=== PATIENT | female | born 1970 | race Caucasian/White ===

== ENCOUNTER 2016-06-19 16:49 | Emergency (ER) | payer BC ==
--- NOTE | 2016-06-19 17:06 | ER Document Report ---
ED General - General Chief Complaint: Shortness Of Breath Stated Complaint: WEAKNESS,JOINT PAIN Time seen by provider: 17:01 Mode of Arrival: Medic Information source: Patient Notes: 45-year-old female woke up this morning and nonproductive cough nausea subjective fever chills body aches particularly in her low back bilaterally. She also reports that 2 weeks of polyuria polydipsia but reports no weight loss. She denies any specific earache, sore throat, chest pain, or abdominal pain. She denies dysuria. She denies hematemesis, mattress, melena, or diarrhea. She also reports sensation of cramping or drawing in both hands which has been present since this morning. She reports taking Synthroid prescribed by provider at [facility] reports no other chronic medical problems Physical Exam: General: Alert, appears uncomfortable HEENT: Normocephalic. Atraumatic. PERRLA. Extraocular movements intact. Oropharynx clear. Mucous membranes moist Neck: Supple. Non-tender. No JVD no nuchal rigidity Respiratory: No respiratory distress. Clear and equal breath sounds bilaterally. Cardiovascular active cardiac and regular PMI not displaced Abdominal: Normal Inspection. Soft, non-tender. No distension. Normal Bowel Sounds. Back: Non-tender. No deformity or step off. No CVA tenderness Extremities: Moves all four extremities. Upper extremities: Normal inspection. Non-tender. Normal color. Normal ROM. Normal temperature. Patient appears to have some carpal spasm bilaterally Lower extremities: Normal inspection. Non-tender. No edema. Normal color. Normal ROM. Normal temperature. Neurological: Speech clear mentation normal Psychological: Normal affect. Normal Mood. Skin: Warm. Dry. Normal color. TRAVEL OUTSIDE OF THE [place] IN LAST 30 DAYS: No - Related Data Allergies/Adverse Reactions: codeine [Codeine] Allergy (Severe, Verified 02/12/14 16:50) Nausea Past Medical History - Social History Smoking Status: Never Smoker Family History: DM, Hypertension - Past Medical History Cardiac Medical History: Denies: Hx Coronary Artery Disease, Hx Heart Attack, Hx Hypertension Pulmonary Medical History: Denies: Hx Asthma, Hx COPD, Hx Pneumonia Neurological Medical History: Denies: Hx Cerebrovascular Accident, Hx Seizures Endocrine Medical History: Reports: Hx Hypothyroidism. Denies: Hx Diabetes Mellitus Type 1, Hx Diabetes Mellitus Type 2 Musculoskeltal Medical History: Denies Hx Arthritis Past Surgical History: Reports: Hx Section - x 1, Hx Hysterectomy - January 2013, Hx Orthopedic Surgery - Immunizations Hx Diphtheria, Pertussis, Tetanus Vaccination: Yes Review of Systems - Review of Systems Constitutional: See HPI EENT: See HPI Cardiovascular: denies: Heart racing Respiratory: See HPI Gastrointestinal: See HPI. denies: Blood in vomit, Black stools, Rectal bleeding Genitourinary: See HPI Female Genitourinary: denies: Musculoskeletal: See HPI Skin: denies: Rash Hematologic/Lymphatic: denies: Swollen glands Neurological/Psychological: See HPI Physical Exam - Vital signs Vitals: Temp Pulse Ox 98 F 98 06/19/16 16:51 06/19/16 16:51 Course - Re-evaluation Re-evalutation: 06/19/16 22:22 Patient's influenza testing was negative but clinically I believe she does have that and that is the etiology for her fever and malaise. Her ABG is consistent with hyperventilation. She was mildly hyperglycemic on arrival this is normalized and her lactic acid route elevation resolved with nothing more than IV fluids and I doubt patient has sepsis. Reevaluation shows her to be resting comfortably and nontoxic in appearance but she reportedly did have an episode of tachypnea during her stay here which was not witnessed by this physician. 06/19/16 22:23 Patient will be discharged with Tamiflu and Zofran for nausea. She reports no primary care physician other than some of the [facility] for hypothyroidism and will provide with primary care physician for follow-up as a glucose up to be rechecked along with hemoglobin A1c in the outpatient setting - Vital Signs Vital signs: Temp Pulse Resp BP Pulse Ox 98 F 22 H 124/76 100 06/19/16 16:51 06/19/16 20:31 06/19/16 20:31 06/19/16 20:31 - Laboratory Result Diagrams: 06/19/16 17:20 06/19/16 21:23 Laboratory results interpreted by me: 06/19/16 06/19/16 06/19/16 17:20 17:20 17:20 Seg Neuts % (Manual) 91 H Lymphocytes % (Manual) 2 L Monocytes % (Manual) 2 L Abs Lymphs (Manual) 0.2 L Carbonic Acid ABG pH ABG pCO2 ABG pO2 ABG HCO3 ABG Total CO2 ABG O2 Saturation Sodium 135.6 L Potassium 3.5 L Chloride Carbon Dioxide 14 L Glucose 208 H POC Glucose Lactic Acid 5.2 H Calcium Urine Protein Urine Glucose (UA) Urine Ketones Urine Ascorbic Acid 06/19/16 06/19/16 06/19/16 17:30 17:52 18:06 Seg Neuts % (Manual) Lymphocytes % (Manual) Monocytes % (Manual) Abs Lymphs (Manual) Carbonic Acid 0.56 L ABG pH 7.52 H ABG pCO2 18.5 L* ABG pO2 114.3 H ABG HCO3 14.7 L ABG Total CO2 15.3 L ABG O2 Saturation 98.6 H Sodium Potassium Chloride Carbon Dioxide Glucose POC Glucose 148 H Lactic Acid Calcium Urine Protein 30 H Urine Glucose (UA) 150 H Urine Ketones 20 H Urine Ascorbic Acid 20 H 06/19/16 21:23 Seg Neuts % (Manual) Lymphocytes % (Manual) Monocytes % (Manual) Abs Lymphs (Manual) Carbonic Acid ABG pH ABG pCO2 ABG pO2 ABG HCO3 ABG Total CO2 ABG O2 Saturation Sodium Potassium 3.3 L Chloride 111 H Carbon Dioxide 18 L Glucose POC Glucose Lactic Acid Calcium 8.1 L Urine Protein Urine Glucose (UA) Urine Ketones Urine Ascorbic Acid - Diagnostic Test Radiology reviewed: Image reviewed, Reports reviewed - EKG Interpretation by Me Additional EKG results interpreted by me: 06/19/16 22:22 EKG review by myself shows sinus tachycardia 113 no acute changes Discharge - Discharge Clinical Impression: Viral syndrome, Hyperglycemia, Hyperventilation Condition: Stable Disposition: HOME, SELF-CARE Instructions: Viral Syndrome ([facility]) Additional Instructions: Hyperventilation You have had an episode of hyperventilation. The symptoms occur because rapid breathing changes the body's chemical balance. Hyperventilation causes dizziness, numbness (particularly of the hands and face), chest pain, muscle spasms, and anxiety. Once an episode begins, it's extremely difficult to control the "need" to breathe rapidly. Hyperventilation may be provoked by drug effects, nausea, or illness, but is often due to anxiety. If no specific cause for the problem was found, treatment for anxiety may be necessary. Once the chemical changes have occurred, the hyperventilation is likely to recur. If you feel the symptoms again, rebreathe your air with a paper bag for several minutes. Sometimes hyperventilation is a symptom of an underlying metabolic or lung problem. If new symptoms develop (such as productive cough, fever, or chest pain), or if you are unable to get relief with rebreathing your exhaled air, call the physician.Hyperglycemia (High Blood Sugar) You have an abnormally high blood sugar. Not all high blood sugar requires long-term treatment. High blood sugar can be due to medications, , or the stress of illness. (These cases are "borderline diabetes.") If the doctor feels your high blood sugar might resolve with time, you may not require treatment now. You will be scheduled for further evaluation. It's very important that you follow through, to see if the blood sugar returns to normal levels. Uncontrolled high blood sugar leads to early heart disease, strokes, nerve damage, eye damage, and kidney damage. Call the physician if there is faintness, excess sleepiness, or very rapid breathing. Prescriptions: Ondansetron [Zofran Odt 4 mg Tablet] 1 tab PO Q6H PRN #15 tab.rapdis PRN Reason: For Nausea/Vomiting Oseltamivir Phosphate [Tamiflu 75 mg Capsule] 75 mg PO BID #9 capsule Referrals: TOAN RICH MD [ACTIVE STAFF] - Follow up in 1 week
[2016-06-19] MEDS: NORMAL SALINE 1000 ML 1,000 ML IV PRN ×2 (17:35→20:29)
[2016-06-19 17:47] LABS: PROTHROMBIN TIME 13.3 SEC (11.4-15.4)
[2016-06-19 17:49] LABS: HEMATOCRIT 39.6 % (36.0-47.0); HEMOGLOBIN 13.5 g/dL (12.0-15.5); HGB HCT DIFFERENCE 0.9; MEAN CORPUSCULAR HEMOGLOBIN 29.4 pg (27.0-33.4); MEAN CORPUSCULAR HGB CONC 34.2 g/dL (32.0-36.0); MEAN CORPUSCULAR VOLUME 86 fl (80-97); RED BLOOD COUNT 4.61 10^6/uL (3.72-5.28); RED CELL DISTRIBUTION WIDTH 13.3 % (11.5-14.0); WHITE BLOOD COUNT 7.7 10^3/uL (4.0-10.5)
[2016-06-19 17:54] LABS: ARTERIAL BLOOD BASE EXCESS -5.6 mmol/L; ARTERIAL BLOOD O2 SATURATION 98.6 % (94-98)
[2016-06-19 17:56] LABS: ALANINE AMINOTRANSFERASE 18 U/L (9-52); ALBUMIN 4.2 g/dL (3.5-5.0); ALKALINE PHOSPHATASE 62 U/L (38-126); ANION GAP 16 (5-19); ASPARTATE AMINO TRANSFERASE 23 U/L (14-36); BILIRUBIN,TOTAL 0.6 mg/dL (0.2-1.3); BLOOD UREA NITROGEN 9 mg/dL (7-20); CALCIUM 9.4 mg/dL (8.4-10.2); CARBON DIOXIDE 14 mmol/L (22-30); CHLORIDE 106 mmol/L (98-107); CREATININE RESULT 0.69 mg/dL (0.52-1.25); GLUCOSE 208 mg/dL (75-110); POTASSIUM 3.5 mmol/L (3.6-5.0); SODIUM 135.6 mmol/L (137-145); TOTAL PROTEIN 7.1 g/dL (6.3-8.2)
[2016-06-19 18:13] LABS: BAND NEUTROPHILS % (MANUAL) 4 % (3-5); BASOPHILS % (MANUAL) 0 % (0-2); EOSINOPHILS % (MANUAL) 0 % (0-6); LYMPHOCYTES % (MANUAL) 2 % (13-45); TOTAL CELLS COUNTED 100
[2016-06-19 18:14] LABS: TOXIC GRANULATION 2+
[2016-06-19 18:43] LABS: APPEARANCE,URINE SLIGHTLY-CLOUDY; BILIRUBIN,URINE NEGATIVE (NEGATIVE); GLUCOSE, URINE 150 mg/dL (NEGATIVE); KETONES,URINE 20 mg/dL (NEGATIVE); LEUKOCYTE ESTERASE,URINE NEGATIVE (NEGATIVE); NITRITE,URINE NEGATIVE (NEGATIVE); PROTEIN,URINE 30 mg/dL (NEGATIVE); URINE SPECIFIC GRAVITY 1.039; UROBILINOGEN,URINE NEGATIVE mg/dL (<2.0)
[2016-06-19 21:55] LABS: ANION GAP 10 (5-19); BLOOD UREA NITROGEN 8 mg/dL (7-20); CALCIUM 8.1 mg/dL (8.4-10.2); CARBON DIOXIDE 18 mmol/L (22-30); CHLORIDE 111 mmol/L (98-107); GLUCOSE 110 mg/dL (75-110); POTASSIUM 3.3 mmol/L (3.6-5.0); SODIUM 138.6 mmol/L (137-145)
[2016-06-19] MEDS ORDERED: ONDANSETRON 4 MG TAB.RAPDIS PO ONE (22:21)
[2016-06-19] MEDS ORDERED: OSELTAMIVIR PHOSPHATE 75 MG CAPSULE PO ONE (22:21)
[2016-06-19 22:49] VITALS: BP 125/72
--- NOTE | 2016-06-20 11:14 | EKG REPORT ---
SEVERITY:- BORDERLINE ECG - SINUS TACHYCARDIA BORDERLINE INFERIOR Q WAVES : Confirmed by: Ernesto Matson 20-Jun-2016 11:13:13
== END 2016-06-19 22:51 | disposition home or self-care (01) ==
LOC: ER 16:49
DX: R06.4 Hyperventilation (principal); B34.9 Viral infection, unspecified; R05 Cough; R73.9 Hyperglycemia, unspecified; R11.0 Nausea; M54.5 Low back pain; R50.9 Fever, unspecified; R53.81 Other malaise; R35.8 Other polyuria; R63.1 Polydipsia; E03.9 Hypothyroidism, unspecified; R00.0 Tachycardia, unspecified; R29.91 Unspecified symptoms and signs involving the musculoskeletal system; Z79.899 Other long term (current) drug therapy; Z88.5 Allergy status to narcotic agent
CPT/HCPCS: 93005; 99285; 96360; 96361; 36415; 87040; 87070; 87086; 87880; 82962; 82803; 85025; 85610; 80048; 80053; 81001; 83605; 87804; 71020; 93010; J7030

== ENCOUNTER → 2016-09-25 | Outpatient (CLI) | payer BC ==
--- NOTE | 2016-09-25 17:05 | RADIOLOGY REPORT (SQ) ---
EXAM DESCRIPTION: MRI LT LOWER EXTREMITY COMBO COMPLETED DATE/TIME: 09/25/2016 4:15 pm REASON FOR STUDY: LOCALIZED SWELLING, MASS AND LUMP, LEFT LOWER LIMB R22.42 LOCALIZED SWELLING, MAS S AND LUMP, LEFT LOWER LIMB COMPARISON: None. TECHNIQUE: Proton density, T1 and gradient noncontrast multiplanar imaging of the left foot. Patient was injected with 15 mL of MultiHance gadolinium, axial coronal and sagittal fat-sat T1 image s were also obtained. LIMITATIONS: None. FINDINGS: Patient has focal plantar foot pain. Area of pain was marked with a vitamin-E capsule. D eep to the vitamin-E capsule, focal plantar fasciitis is present along the medial plantar fascia bund le, 5 cm from the calcaneus. There is focal thickening of the plantar fascia and marked contrast enh ancement. This involves an area of the plantar fascia measuring about 1.6 cm longitudinal by a 1.8 c m transverse, and is best shown on axial image 19, coronal image 10, and sagittal image 8. MARROW SIGNAL: Normal JOINT EFFUSION: No tibiotalar joint or subtalar joint effusions. Intertarsal joints are normal. SINUS TARSI: Unremarkable PLANTAR FASCIA: As above TARSAL, TARSOMETATARSAL AND TOE ARTICULATIONS: Unremarkable SOFT TISSUES: Unremarkable OTHER: No other significant finding IMPRESSION: The area of patient's plantar pain correlates with focal plantar fasciitis TECHNICAL DOCUMENTATION: JOB ID: [id number] [employer]- All Rights Reserved
== END ==
LOC: RAD 15:09
PROVIDERS: ATTEND Podiatrist Foot & Ankle Surgery
DX: R22.42 Localized swelling, mass and lump, left lower limb (principal)
CPT/HCPCS: 73720; A9577

== ENCOUNTER 2016-10-25 08:39 | Day surgery (SDC) | payer BC ==
[2016-10-24 13:58] LABS: ABSOLUTE EOSINOPHILS # (AUTO) 0.1 10^3/uL (0.0-0.6); ABSOLUTE MONOCYTES (AUTO) 0.6 10^3/uL (0.1-1.4); BASOPHILS % (AUTO) 0.4 % (0-2); EOSINOPHILS % (AUTO) 0.5 % (0-6); HEMATOCRIT 47.9 % (36.0-47.0); HEMOGLOBIN 15.9 g/dL (12.0-15.5); HGB HCT DIFFERENCE -0.2; LYMPHOCYTES % (AUTO) 27.8 % (13-45); MEAN CORPUSCULAR HEMOGLOBIN 28.5 pg (27.0-33.4); MEAN CORPUSCULAR HGB CONC 33.1 g/dL (32.0-36.0); MEAN CORPUSCULAR VOLUME 86 fl (80-97); MONOCYTES % (AUTO) 5.4 % (3-13); RED BLOOD COUNT 5.57 10^6/uL (3.72-5.28); RED CELL DISTRIBUTION WIDTH 13.9 % (11.5-14.0); SEGMENTED NEUTROPHILS % (AUTO) 65.9 % (42-78); WHITE BLOOD COUNT 10.7 10^3/uL (4.0-10.5)
[2016-10-24 14:02] LABS: APPEARANCE,URINE SLIGHTLY-CLOUDY; BILIRUBIN,URINE NEGATIVE (NEGATIVE); GLUCOSE, URINE NEGATIVE (NEGATIVE); KETONES,URINE NEGATIVE (NEGATIVE); LEUKOCYTE ESTERASE,URINE NEGATIVE (NEGATIVE); NITRITE,URINE NEGATIVE (NEGATIVE); PROTEIN,URINE NEGATIVE (NEGATIVE); URINE SPECIFIC GRAVITY 1.016; UROBILINOGEN,URINE NEGATIVE mg/dL (<2.0)
[~2016-10-25 08:39] MED LIST: CEFAZOLIN 1 GM/D5W RTU 1 GM/50 ML RTUPB IV PRN; RINGERS SOLUTION,LACTATED 1,000 ML IV PRN
[2016-10-25] MEDS ORDERED: LIDOCAINE 2% INJ (20 MG/ML) 20 ML MDV ONE (08:58)
[2016-10-25] MEDS ORDERED: BUPIVACAINE HCL 0.5 % INJ/PF 30 ML SDV ONE (08:59)
[2016-10-25] MEDS ORDERED: MIDAZOLAM 2 MG/2 ML INJ ONE (09:28)
[2016-10-25] MEDS ORDERED: LIDOCAINE 2% INJ-PF (100 MG/5 ML) SYRINGE ONE (09:29)
[2016-10-25] MEDS ORDERED: FENTANYL CITRATE INJ/PF 100 MCG/2 ML AMPUL ONE (09:29)
[2016-10-25] MEDS ORDERED: PROPOFOL INJ 200 MG/20 ML VIAL IV ONE (11:16)
[2016-10-25] MEDS ORDERED: ONDANSETRON HCL INJ/PF 4 MG/2 ML SDV ONE (11:44)
--- NOTE | 2016-11-20 13:49 | [facility] OPERATIVE REPORT E ---
[facility] Operative Report NAME: ANGELA REEDER AGE: 46Y DATE OF SURGERY: 10/25/2016 ROOM: PREOPERATIVE DIAGNOSIS: Plantar fibromatoma, left foot. POSTOPERATIVE DIAGNOSIS: Plantar fibromatoma, left foot. PROCEDURE PERFORMED: Excision of plantar fibromatoma, left foot. SURGEON: KELSEY LEAL D.P.M. INTRAOPERATIVE FINDINGS: Indicated very large fibrous tumor located and occupying extensively the medial band of the plantar fascia. The mass was not penetrating deeper than the plantar fascia and had no invasive characteristics at all. Intraoperative findings were confirmed clinically and via MRI. COMPLICATIONS: None. SPECIMEN REMOVED: Fibrous tumor from the left foot. PROCEDURE: With the patient laying in a dorsal recumbent position, left foot and leg were prepped and draped in the usual standard sterile orthopedic manner after the local anesthesia was administered, which was a posterior tibial block at the level of the left ankle. The type of anesthesia utilized was a 50/50 mixture of 2% Xylocaine and 0.5% Marcaine. After the anesthetic effect was accomplished the left leg was elevated for approximately 2 minutes of time and the left ankle pneumatic tourniquet was inflated up to 250 mmHg after the blood was exsanguinated from the left foot. At this point the left leg was brought to the level of the table and attention was directed to the plantar aspect of the left foot. The margins of the plantar mass were marked on the skin and a curvilinear incision was placed right through the apical portion of the mass. The incision was longitudinal and curved to prevent scarring and was parallel to the long axis of the plantar surface of the left foot. The initial incision was deepened. All superficial and deep subcutaneous tissues were dissected via blunt and sharp dissection. All bleeders were ligated at this point. The dissection continued until the tumor was brought into the surgical field. Again, it was located over the medial band of the plantar fascia. Very carefully the tumor was excised from its attachment to the plantar fascia. The plantar fascia was evaluated and precautions were taken to not leave any remnants of the tumor behind since it has very high characteristics of recurrence. The final evaluation of the plantar fascia indicated a total clearing from any pathological tissue. The medial band of the plantar fascia was also left intact. Due to the successful excision of the plantar mass, the area was irrigated with copious amounts of sterile saline solution. The ankle tourniquet was deflated. Circulation to the left foot returned to normal immediately as the normal digital color and temperature became apparent. At this point the subcutaneous tissues were closed with 3-0 Vicryl. The skin edges were repositioned and closed with 4-0 nylon using continuous interlocked stitch. A Betadine compression dressing was applied around the left foot, followed with the August bandage and a surgical shoe. This patient tolerated the procedure well, left the operating room with stable vital signs and in good condition. The patient was taken to the recovery room, alert, conscious and oriented, and there are no permanent disabilities anticipated at this time. The immediate postoperative recovery was also very uneventful. The patient was sent home with instructions for postoperative care at home and instructions how to manage the pain medicine and the antibiotics. The patient was placed on a regular diet. Point of contact information was also given to the patient. Again, there are no permanent disabilities anticipated at this time. DICTATING PHYSICIAN: KELSEY LEAL D.P.M. [id number] PHY#: [id number] ID: [id number] JOB#: [id number] ACCT: [id number] cc:KELSEY LEAL D.P.M. >
== END 2016-10-25 12:00 | disposition home or self-care (01) ==
LOC: SC 08:39
PROVIDERS: ATTEND Podiatrist Foot & Ankle Surgery
PROC: 0JBR0ZZ Excision of Left Foot Subcutaneous Tissue and Fascia, Open Approach (ICD-10-PCS; principal; 2016-10-25 09:45)
DX: D48.1 Neoplasm of uncertain behavior of connective and other soft tissue (principal); Z79.899 Other long term (current) drug therapy; E07.9 Disorder of thyroid, unspecified; M72.2 Plantar fascial fibromatosis
CPT/HCPCS: 36415; 85025; 81001; 88304 ×2; 28060; J2250; J3490; J0690; J3010; J2001; J2405; J2704; 1464

== ENCOUNTER 2018-01-18 17:03 | Emergency (ER) | payer BC ==
[2018-01-18] MEDS ORDERED: IBUPROFEN 600 MG TABLET PO ONE (18:12)
[2018-01-18] MEDS ORDERED: METHOCARBAMOL 500 MG TABLET PO ONE (18:12)
[2018-01-18 18:28] LABS: APPEARANCE,URINE CLEAR; BILIRUBIN,URINE NEGATIVE (NEGATIVE); COLOR,URINE YELLOW; GLUCOSE, URINE NEGATIVE (NEGATIVE); KETONES,URINE NEGATIVE (NEGATIVE); LEUKOCYTE ESTERASE,URINE NEGATIVE (NEGATIVE); NITRITE,URINE NEGATIVE (NEGATIVE); PROTEIN,URINE NEGATIVE (NEGATIVE); URINE SPECIFIC GRAVITY 1.016
--- NOTE | 2018-01-18 18:42 | RADIOLOGY REPORT (SQ) ---
EXAM DESCRIPTION: CT LTD RENAL STONE PROTOCOL ON COMPLETED DATE/TIME: 01/18/2018 6:18 pm REASON FOR STUDY: right flank and low back pain COMPARISON: 08/16/2013 TECHNIQUE: CT scan of the abdomen and pelvis performed without intravenous or oral contrast. Images reviewed with lung, soft tissue, and bone windows. Reconstructed coronal and sagittal MPR images revi ewed. All images stored on PACS. All CT scanners at this facility use dose modulation, iterative reconstruction, and/or weight based d osing when appropriate to reduce radiation dose to as low as reasonably achievable (ALARA). [facility]: Dose Right [facility]: CareDose [facility]: Dose Right [facility]: Teradose 4D [facility]: Smart [employer] RADIATION DOSE: CT Rad equipment meets quality standard of care and radiation dose reduction techniq ues were employed. CTDIvol: 8.8 mGy. DLP: 469 mGy-cm.mGy. LIMITATIONS: None. FINDINGS: LOWER CHEST: No significant findings. No nodules or infiltrates. NON-CONTRASTED LIVER, SPLEEN, ADRENALS: Evaluation limited by lack of IV contrast. No identified sign ificant masses. PANCREAS: No masses. No peripancreatic inflammatory changes. GALLBLADDER: No identified stones by CT criteria. No inflammatory changes to suggest cholecystitis. RIGHT KIDNEY AND URETER: No suspicious masses. Assessment limited by lack of IV contrast. No signif icant calcifications. No hydronephrosis or hydroureter. LEFT KIDNEY AND URETER: No suspicious masses. Assessment limited by lack of IV contrast. No signifi cant calcifications. No hydronephrosis or hydroureter. AORTA AND RETROPERITONEUM: No aneurysm. No retroperitoneal masses or adenopathy. BOWEL AND PERITONEAL CAVITY: No obvious masses or inflammatory changes. No free fluid. APPENDIX: Normal. PELVIS, BLADDER, AND ABDOMINAL WALL:No abnormal masses. No free fluid. Bladder normal. BONES: No significant findings. OTHER: No other significant finding. IMPRESSION: NO SIGNIFICANT OR ACUTE PROCESS IN THE ABDOMEN OR PELVIS. COMMENT: Quality ID # [id number]: Final reports with documentation of one or more dose reduction techniques (e.g., Automated exposure control, adjustment of the mA and/or kV according to patient size, use of iterative reconstruction technique) TECHNICAL DOCUMENTATION: JOB ID: [id number] [employer]- All Rights Reserved Reading location - IP/workstation name: [email or web address]
--- NOTE | 2018-01-18 19:03 | ER Document Report ---
ED Neck/Back Problem - General Chief Complaint: Low Back Pain Stated Complaint: BACK PAIN Time Seen by Provider: 01/18/18 17:39 Mode of Arrival: Ambulatory Information source: Patient Notes: 37-year-old female presented to ED for complaint of low back pain. She states she has had this pain for a while but today she bent over and felt a pop and had a lot more pain than normal. She states she has had the back pain for at least 2 months. She is alert and oriented respirations regular and able speaking in full sentences walking with a even steady gait. TRAVEL OUTSIDE OF THE [place] IN LAST 30 DAYS: No - HPI Patient complains to provider of: Pain, Lower back - Pain to the left lower back and flank. Onset: Other - She has had pain off and on for about 2 months but it got much worse last couple days and today she felt a pop when she bent over so she came to the emergency room Onset: Gradual Timing: Still present Quality of pain: Sharp Severity: Moderate Pain Level: 4 Context: Bending Recent injury: No Associated symptoms: Like prior neck/back pain - States is worse no vertebral tenderness, Lower back pain - Left lower back and flank pain. denies: Incontinence, Motor loss, Numbness/tingling, Radiation to arm, Radiation to chest, Radiation to leg, Sensory loss, Sweaty, Unable to urinate, Upper back pain Exacerbated by: Movement of trunk, Sitting position Relieved by: Nothing Similar symptoms previously: Yes Recently seen / treated by doctor: No - Related Data Allergies/Adverse Reactions: No Known Allergies Allergy (Unverified 10/24/16 12:17) Past Medical History - General Information source: Patient - Social History Smoking Status: Never Smoker Cigarette use (# per day): No Chew tobacco use (# tins/day): No Smoking Education Provided: No Frequency of alcohol use: None Drug Abuse: None Occupation: [employer] Lives with: Family Family History: DM, Hypertension Patient has suicidal ideation: No Patient has homicidal ideation: No - Past Medical History Cardiac Medical History: Reports: Hx Hypertension Pulmonary Medical History: Reports: None EENT Medical History: Reports: None Neurological Medical History: Reports: None Endocrine Medical History: Reports: Hx Hypothyroidism Renal/ Medical History: Reports: None Malignancy Medical History: Reports: None GI Medical History: Reports: None Musculoskeletal Medical History: Reports Hx Musculoskeletal Deformity, Reports Hx Musculoskeletal Trauma Skin Medical History: Reports None Psychiatric Medical History: Reports: None Traumatic Medical History: Reports: Hx Fractures - Fractured knees Infectious Medical History: Reports: None Past Surgical History: Reports: Hx Section - x 1, Hx Hysterectomy, Hx Orthopedic Surgery - Meniscus and foot surgery - Immunizations Hx Diphtheria, Pertussis, Tetanus Vaccination: Yes Review of Systems - Review of Systems Constitutional: No symptoms reported EENT: No symptoms reported Cardiovascular: No symptoms reported Respiratory: No symptoms reported Gastrointestinal: No symptoms reported Genitourinary: Flank pain Female Genitourinary: No symptoms reported Musculoskeletal: Back pain, Muscle pain, Muscle stiffness Skin: No symptoms reported Hematologic/Lymphatic: No symptoms reported Neurological/Psychological: No symptoms reported -: Yes All other systems reviewed and negative Physical Exam - Vital signs Vitals: Temp Pulse Resp BP Pulse Ox 98.2 F 75 14 153/82 H 99 01/18/18 17:22 01/18/18 17:22 01/18/18 17:22 01/18/18 17:22 01/18/18 17:22 Interpretation: Normal - General General appearance: Appears well, Alert - HEENT Head: Normocephalic, Atraumatic Eyes: Normal Pupils: PERRL - Respiratory Respiratory status: No respiratory distress Chest status: Nontender Breath sounds: Normal Chest palpation: Normal - Cardiovascular Rhythm: Regular Heart sounds: Normal auscultation Murmur: No - Abdominal Inspection: Normal Distension: No distension Bowel sounds: Normal Tenderness: Nontender Organomegaly: No organomegaly - Back Back: Normal, Tender. No: Deformity/step-off, CVA tenderness, Vertebra tenderness, Scars, Scoliosis, Wounds Notes: No signs or symptoms of cauda equina, no saddle anesthesia, no loss control of bowel bladder, no loss of sensation or control of lower extremities. - Extremities General upper extremity: Normal inspection, Nontender, Normal color, Normal ROM , Normal temperature General lower extremity: Normal inspection, Nontender, Normal color, Normal ROM , Normal temperature, Normal weight bearing. No: Israel's sign - Neurological Neuro grossly intact: Yes Cognition: Normal Orientation: AAOx4 Cherry Coma Scale Eye Opening: Spontaneous Cherry Coma Scale Verbal: Oriented Cherry Coma Scale Motor: Obeys Commands [place] Coma Scale Total: 15 Speech: Normal Motor strength normal: LUE, RUE, LLE, RLE Sensory: Normal - Psychological Associated symptoms: Normal affect, Normal mood - Skin Skin Temperature: Warm Skin Moisture: Dry Skin Color: Normal Course - Re-evaluation Re-evalutation: 01/18/18 21:06 CT and urine discussed with patient and written results given to patient to follow-up with her primary doctor. Patient was treated with muscle relaxers. Patient was instructed to follow-up with her primary doctor. - Vital Signs Vital signs: Temp Pulse Resp BP Pulse Ox 98.2 F 73 15 138/87 H 100 01/18/18 19:03 01/18/18 19:03 01/18/18 19:03 01/18/18 19:03 01/18/18 19:03 - Laboratory Laboratory results interpreted by me: 01/18/18 18:13 Urine Urobilinogen 2.0 H - Diagnostic Test Radiology reviewed: Image reviewed, Reports reviewed Discharge - Discharge Clinical Impression: Left flank pain Low back pain Qualifiers: Chronicity: chronic Back pain laterality: bilateral Sciatica presence: without sciatica Qualified Code(s): M54.5 - Low back pain Condition: Stable Disposition: HOME, SELF-CARE Additional Instructions: Flank Pain We weren't able to prove an exact cause for your flank pain. Pain in the flank can be caused by a muscle strain or spasm. Sometimes a kidney stone causes pain, but can't be found on our tests. Infection in the kidney should be evident on a urine test. Early shingles can occasionally cause flank pain, without the rash that proves the diagnosis. On rare occasions, disease of the pancreas, aorta, spleen, or colon can create pain in the flank. At this time, there's no evidence of a dangerous condition, and it seems safe for you to be at home. If the pain goes away and does not come back, no further testing will be needed. If pain persists, or becomes more severe, we may need to repeat some tests or order additional new testing. Blood in the urine, urgency to urinate frequently, and pain that radiates to the groin can indicate a kidney stone. Fever may mean that the pain is due to infection, either of the kidney or the colon (diverticulitis). If your pain is early shingles, you should develop an eruption of blisters in the painful area within a few days. Call the doctor or return if you have pain that is spreading or becoming more severe, pain that does not resolve with time, fever, or any other new symptoms. LOW BACK PAIN: Three out of every four people will have an episode of disabling back pain during their lifetime. Most commonly the pain is due to straining of the muscles and ligaments in the low back. Usual treatment includes: (1) Rest on a firm surface. Avoid lying on your stomach. (2) Ice pack the painful area. After a few days, gentle heat may be used intermittently to relax the area, or ice packs can be continued. (3) Medication may be needed -- muscle relaxers and antiinflammatory medicines are commonly used. (4) As the back improves, exercises are prescribed to strengthen the back and abdominal muscles. Your doctor will advise you on the proper care for your back at each stage in your recovery. You may be better in a few days -- or healing may take several weeks. If new symptoms of a "herniated disc" (radiation of pain, numbness, or tingling down the back of the leg or weakness in the leg) occur, you should be re-examined. Further testing may be necessary. Ibuprofen Ibuprofen is an excellent, safe drug for pain control. In addition, it has potent antiinflammatory effects which are beneficial, especially in the treatment of injuries, arthritis, or tendonitis. It's best to take ibuprofen with food. Persons with ulcer disease or allergy to aspirin should notify their physician of this before taking ibuprofen. Take the medication exactly as prescribed. Don't take additional doses unless instructed to do so by your doctor. If you develop wheezing, shortness of breath, hives, faintness, stomach pain, vomiting, or dark black stools, return for re-evaluation at once. MUSCLE RELAXERS: Muscle relaxing medications are usually prescribed for acute muscle spasm or injury to the neck and back. They are often combined with antiinflammatory pain medication for increased relief. You may stop the muscle relaxer when the pain and stiffness have improved. Start the medication again if spasms recur. Muscle relaxers may cause drowsiness, especially with the first dose. Do not operate machinery or drive while under the effects of the medication. Most muscle relaxers last up to 24 hours. Do not combine the medication with alcohol. ICE PACKS: Apply ice packs frequently against the painful area. Many different schedules are recommended, such as "20 minutes on, 20 minutes off" or "one hour ice, two hours rest." If you need to work, you may need to go longer between ice treatments. You should plan to have the area ice packed AT LEAST one fourth of the time. The ice should be applied over the wrap, tape, or splint, or over a layer of cloth -- not directly against the skin. Some ice bags have a built-in cloth and can be put directly on the skin. WARM PACKS: After approximately two days, apply gentle heat (such as a heating pad or hot water bottle) for about 20 to 30 minutes about every two hours -- at least four times daily. Warmth and elevation will help you make a more rapid recovery , and will ease the pain considerably. Do not use HOT heat, and never apply heat for longer than 30 minutes. The continuous heat can invisibly damage skin and muscles -- even when no burn is seen on the surface. Damaged muscles can make you MORE sore. Stretching Exercises for the Back The physician has recommended that you begin stretching exercises for your back. These are often used even while the back is painful. However, you should notify the physician if the activities seem to increase your pain. PELVIC TILT: Lie flat on your back with knees bent. Tighten your stomach and buttock muscles so it flattens your lower back against the floor. Hold 10 seconds. Repeat 10 times, twice daily. KNEE RAISE: Lying on the back with knees bent, raise one knee to your chest, then the other. Hold both knees against the chest 10 seconds, then lower one knee at a time. Repeat 10 times, twice daily. PARTIAL TRUNK RAISE: Lie face down, arms at your sides. Keeping your waist on the floor, use your arms raise your chest up. Support yourself on your elbows for 30 seconds. Repeat twice daily, increasing the time to two minutes as you recover. FOLLOW-UP CARE: If you have been referred to a physician for follow-up care, call the physician s office for an appointment as you were instructed or within the next two days. If you experience worsening or a significant change in your symptoms, notify the physician immediately or return to the Emergency Department at any time for re-evaluation. Prescriptions: Methocarbamol [Robaxin 500 mg Tablet] 500 mg PO BID #20 tablet Forms: Elevated Blood Pressure Referrals: RAVI BAUMAN MD [Primary Care Provider] - Follow up as needed
[2018-01-18 19:06] VITALS: BP 138/87
== END 2018-01-18 19:06 | disposition home or self-care (01) ==
LOC: ER 17:03
DX: M54.5 Low back pain (principal); R10.9 Unspecified abdominal pain; I10 Essential (primary) hypertension
CPT/HCPCS: 76380; 81001; 87086; 99284

== ENCOUNTER → 2018-05-13 | Outpatient (CLI) | payer BC ==
--- NOTE | 2018-05-13 17:11 | WOMENS IMAGING REPORT ---
EXAM DESCRIPTION: 3D SCREENING MAMMO BILAT COMPLETED DATE/TIME: 05/13/2018 9:02 am REASON FOR STUDY: ROUTINE 3D BILATERAL SCREENING,Z12.31 Z12.31 ENCNTR SCREEN MAMMOGRAM FOR MALIGNAN T NEOPLASM OF ALLEY COMPARISON: 2012, 2013 TECHNIQUE: Standard craniocaudal and mediolateral oblique views of each breast recorded using digita l acquisition and breast tomosynthesis. LIMITATIONS: None. FINDINGS: No masses, calcifications or architectural distortion. No areas of suspicion. Read with the assistance of CAD. .[facility] - R2 Cenova Version 1.3 .[facility] - R2 Cenova Version 2.1 .[facility] - R2 Cenova Version 2.4 .[facility] - R2 Cenova Version 2.4 .[facility] - R2 Crushing Machine Operator Version 9.2 IMPRESSION: NORMAL MAMMOGRAM. BIRADS 1. BREAST DENSITY: b. There are scattered areas of fibroglandular density. BIRAD: 1 NEGATIVE RECOMMENDATION: ROUTINE SCREENING COMMENT: The patient has been notified of the results by letter per SA requirements. Additional no tification policies are in place for contacting patient with suspicious or incomplete findings. Quality ID #[id number]: The [employer] recommends an annual screening mammogram for women aged 40 years or over. This facility utilizes a reminder system to ensure that all patients receive reminder letters, and/or direct phone calls for appointments. This includes reminders for routine scr eening mammograms, diagnostic mammograms, or other Breast Imaging Interventions when appropriate. Th is patient will be placed in the appropriate reminder system. The [employer] (ACR) has developed recommendations for screening MRI of the breast s in certain patient populations, to be used in conjunction with mammography. Breast MRI surveillanc e may be appropriate for women with more than 20% lifetime risk of developing breast cancer as deter mined by genetic testing, significant family history of the disease, or history of mantle radiation f or Hodgkins Disease. ACR Practice Guidelines 2008. DBT Technology DBT is a type of tomographic mammography. With conventional mammography, overlapping breast tissue ma y make lesions difficult to detect, even with good compression. DBT uses an x-ray tube that rotates a round the breast, taking images at different angles. These images are then combined to create thin sl ices of the breast that the radiologist can view as a 3D reconstruction. The COVEGA unit can perform full-field digital mammograms (2D imaging); or DBT (3D imaging); or both, in a combination mode that quickly performs both the mammogram and the tomosynthesis scan while the breast is still compressed. PQRS 6045F: Fluoroscopic imaging is not utilized for breast tomosynthesis. TECHNICAL DOCUMENTATION: FINDING NUMBER: (1) ASSESSMENT: (1) JOB ID: [id number] [employer]- All Rights Reserved Reading location - IP/workstation name: [email or web address]
== END ==
LOC: WI 08:03
PROVIDERS: ATTEND Family Medicine
DX: Z12.31 Encounter for screening mammogram for malignant neoplasm of breast (principal)
CPT/HCPCS: 77063; 77067

== ENCOUNTER → 2019-06-23 | Outpatient (CLI) | payer BC ==
--- NOTE | 2019-06-23 10:21 | WOMENS IMAGING REPORT ---
EXAM DESCRIPTION: 3D SCREENING MAMMO BILAT COMPLETED DATE/TIME: 06/23/2019 9:31 am REASON FOR STUDY: Z12.31 SCREENING MAMMO Z12.31 ENCNTR SCREEN MAMMOGRAM FOR MALIGNANT NEOPLASM OF B RE COMPARISON: Multiple since 2012 EXAM PARAMETERS: Views: Standard craniocaudal and mediolateral oblique views of each breast recorded using digital acquisition and breast tomosynthesis. Read with the assistance of CAD. .[facility] - Milo Hammerer Tab Version 9.2 LIMITATIONS: None. FINDINGS: No suspicious masses, suspicious calcifications or architectural distortion. No areas of c oncern. IMPRESSION: NEGATIVE MAMMOGRAM. BIRADS 1. BREAST DENSITY: b. There are scattered areas of fibroglandular density. BIRAD: ASSESSMENT: 1 NEGATIVE RECOMMENDATION: ROUTINE SCREENING Please continue yearly bilateral screening mammography/tomosynthesis in June 2020. COMMENT: The patient has been notified of the results by letter per SA requirements. Additional no tification policies are in place for contacting patient with suspicious or incomplete findings. Quality ID #[id number]: The [employer] recommends an annual screening mammogram for women aged 40 years or over. This facility utilizes a reminder system to ensure that all patients receive reminder letters, and/or direct phone calls for appointments. This includes reminders for routine scr eening mammograms, diagnostic mammograms, or other Breast Imaging Interventions when appropriate. Th is patient will be placed in the appropriate reminder system. TECHNICAL DOCUMENTATION: FINDING NUMBER: (1) ASSESSMENT: (1) JOB ID: [id number] 2010 [employer]- All Rights Reserved Reading location - IP/workstation name: [email or web address]
== END ==
LOC: WI 08:45
PROVIDERS: ATTEND Family Medicine
DX: Z12.31 Encounter for screening mammogram for malignant neoplasm of breast (principal)
CPT/HCPCS: 77063; 77067